=== PATIENT | female | born 1995 | race Two or more races ===

== ENCOUNTER 2022-06-28 13:45 | Inpatient (IN) | payer OTHER ==
[~2022-06-28] VITALS: Ht 152.4 cm; Wt 64.0 kg
[2022-07-08] MEDS ORDERED: PRENATAL TABLE1 EAC1 PO (13:52)
== END 2022-07-10 13:42 | disposition home or self-care (01) | DRG 807 ==
LOC: OB/GYN 07-08 12:41 → LDR 07-08 12:41 → OB/GYN 07-08 16:39 → LDR 07-11 13:45
PROVIDERS: ADMIT Obstetrics & Gynecology; ATTEND Obstetrics & Gynecology
PROC: 10E0XZZ Delivery of Products of Conception, External Approach (ICD-10-PCS; principal; 2022-07-08)
PROC: 0W8NXZZ Division of Female Perineum, External Approach (ICD-10-PCS; 2022-07-08)
PROC: 4A1HXCZ Monitoring of Products of Conception, Cardiac Rate, External Approach (ICD-10-PCS; 2022-07-08)
DX: O80 Encounter for full-term uncomplicated delivery (principal); Z37.0 Single live birth; Z3A.39 39 weeks gestation of pregnancy; Z20.822 Contact with and (suspected) exposure to COVID-19